=== PATIENT | female | born 1990 | race Caucasian/White ===

== ENCOUNTER 2017-06-26 19:37 | Emergency (ER) | payer MEDICAID, OTHER ==
[2017-06-26 19:45] VITALS: BP 128/79
[2017-06-26] MEDS ORDERED: CIPROFLOXACIN HCL 50 DROP BTL ONE (19:51)
--- NOTE | 2017-06-26 19:58 | ERNOTE ---
ENT HPI Date of Service: 06/26/17 Presenting Symptoms: other - left eye started draining and became red at 1300 hours. Time Seen by Provider: 06/26/17 19:39 Source: patient - Immun/Allergies/Home Medications Immunizations: IMMUNIZATION HX Immunizations Up to Date No Allergies/Adverse Reactions: Allergies Allergy/AdvReac Type Severity Reaction Status Date / Time No Known Allergies Allergy Unverified 08/14/12 05:12 Home Medications: HOME MEDICATIONS Pnv95/Ferrous Fumarate/FA [ Multivitamins Tablet] 1 each PO DAILY [Last Taken 08/13/12 09:00 1 tab] Docusate Sodium [Colace] 100 mg PO BID #0 capsule 08/16/12 [Last Taken Unknown] Ibuprofen 600 mg PO PRN PRN #1 tablet 08/16/12 [Last Taken Unknown] oxyCODONE HCL/ACETAMINOPHEN [Percocet 5 MG/325 MG] 1 tab PO PRN PRN #1 tablet [Last Taken Unknown] - History of Present Illness Narrative: 27 year old that started having tearing, discharge from the left eye. No complaints of pain, however there is minor irritation. No history of trauma. Her son was diagnosed with pink eye one week ago. No complaints of fever, chills or headache. Date (Duration): 06/26/17 Time (Timing): 19:54 Severity: Present: moderate ENT Location: Present: eye (L) Prearrival Treatment: Present: no prearrival treatment Modifying Factors - Improves: Reports: nothing Modifying Factors - Worsens: Reports: nothing Associated Symptoms - ENT: Reports: denies symptoms Review of Systems - Review of Systems Constitutional: Present: no symptoms reported EYE: Present: see HPI ENT: Present: no symptoms reported Respiratory: Present: no symptoms reported Cardiology: Present: no symptoms reported Gastrointestinal/Abdominal: Present: no symptoms reported Genitourinary: Present: no symptoms reported Musculoskeletal: Present: no symptoms reported Skin: Present: no symptoms reported Neurological: Present: no symptoms reported Endocrine: Present: no symptoms reported Hematologic/Lymphatic: Present: no symptoms reported Psych: Present: no symptoms reported - Patient's Past Medical History Patient History - Medical: No pertinent hx, Anxiety, Depression - Social History Living Situations: home Psych History: Hx of Anxiety, Hx of Depression Smoking Status: Current some day smoker - Immunizations Immunizations Up to Date: No Physical Exam - Physical Exam General Appearance: Present: no apparent distress Head Exam: Present: normal inspection Eye Exam: Eye drainage: left, Other: left - intensely red conjuctiva; tearing Ears, Nose, Throat: Present: normal ENT inspection Neck: Present: normal inspection Respiratory: Present: no respiratory distress Cardiovascular/Chest: Present: regular rate, rhythm Gastrointestinal/Abdominal: Present: nondistended Extremity Exam: Present: normal inspection Neurological Exam: Present: alert, oriented, normal mood/affect Skin Exam: Present: normal color ED Progress - Vital Signs Patient's Vital Signs:: I have reviewed the patient's vital signs. Vital Signs: Vital Signs 06/26/17 19:41 Temperature 36.2 C L Pulse Rate 104 H Respiratory 12 Rate Blood Pressure 128/79 O2 Sat by Pulse 100 Oximetry - Progress/Reassessment Chief Complaint: Eye Injury/Trauma Progress:: Unchanged Progress Note-Subjective: 06/26/17 19:56 Given Cipro eye drops. Departure Clinical Impression: Ivins eye - Departure Disposition: Home self-care Condition: Good Instructions: Bacterial Conjunctivitis, [id number] Print Language: [place] Additional Instructions: Cipro 2 drops to both eyes every four hours while awake for five days. Return to the ED in 24 hours if symptoms are worse. Referrals: Spencer Bolton DO [Primary Care Provider] -
[2017-06-26] MEDS ORDERED: CIPROFLOXACIN HCL 50 DROP BTL LEFTEYE ONE (19:59)
[2017-06-26] MEDS ORDERED: CIPROFLOXACIN HCL 50 DROP BTL EACHEYE ONE (20:11)
== END 2017-06-26 20:13 | disposition home or self-care (01) ==
LOC: ER 19:37
DX: H10.022 Other mucopurulent conjunctivitis, left eye (principal); F17.200 Nicotine dependence, unspecified, uncomplicated